=== PATIENT | male | born 1980 | race Hispanic/Latino ===

== ENCOUNTER 2023-01-17 11:27 | Emergency (ER) | payer BC, OTHER ==
[~2023-01-17] VITALS: Ht 177.8 cm; Wt 118.8 kg
[2023-01-17 12:00] LABS: BASOPHILS % (AUTO) 0.6 % (0.0-5.0); EOSINOPHILS % (AUTO) 1.6 % (0.0-8.0); HEMATOCRIT 44.6 % (42-54); LYMPHOCYTES % (AUTO) 33.5 % (21.0-51.0); MEAN CORPUSCULAR HEMOGLOBIN 28.1 pg (27.0-33.0); MEAN CORPUSCULAR HGB CONC 33.9 g/dL (32.0-36.0); MEAN CORPUSCULAR VOLUME 82.9 fL (79-99); MONOCYTES % (AUTO) 7.6 % (3.0-13.0); NEUTROPHILS % (AUTO) 56.3 % (40.0-77.0); PLATELET COUNT (AUTO) 276 K/uL (130-400); RED BLOOD CELL COUNT(AUTO) 5.38 MIL/uL (4.50-6.20); RED CELL DISTRIBUTION WIDTH 12.3 % (11.0-15.5)
[2023-01-17 12:42] LABS: CREATININE 0.8 mg/dL (0.5-1.5); POTASSIUM 3.8 mmol/L (3.5-5.1)
[2023-01-17 12:49] LABS: ALBUMIN 3.7 g/dL (3.5-5.0); MAGNESIUM 1.7 mg/dL (1.80-2.40); TOTAL PROTEIN, SERUM 8.2 g/dL (6.0-8.3)
[2023-01-17] MEDS ORDERED: 0.9%NACL 1000ML 1,000 ML IV ONE (15:00)
[2023-01-17] MEDS ORDERED: KETOROLAC 30MG VIAL (30MG/ML) ONE (15:15)
[2023-01-17] MEDS ORDERED: KETOROLAC 30MG VIAL (30MG/ML) IVP ONE (15:30)
[2023-01-17 16:13] VITALS: BP 145/85
== END 2023-01-17 16:25 | disposition home or self-care (01) ==
LOC: EDH 11:27
DX: G44.209 Tension-type headache, unspecified, not intractable (principal); H53.2 Diplopia
CPT/HCPCS: 99285; 96360; 70450; 71045; 83735; 84484; 80053; 85025; 85651; 86140; 36415; 93005; J7030; 96361; J1885